=== PATIENT | male | born 1950 | race Caucasian/White ===

== ENCOUNTER 2020-06-27 06:15 | Outpatient (CLI) | payer MEDICARE, OTHER ==
[2020-06-27 16:46] LABS: SARS-CoV-2 MS2 Positive; SARS-CoV-2 N Gene Negative; SARS-CoV-2 S Gene Negative; SARS-CoV-2 by NAA Not Detected (NotDetected); SARS-CoV-2 orf1ab Negative
== END 2020-06-27 06:16 | disposition home or self-care (01) ==
LOC: LABBT 06:15
PROVIDERS: ATTEND Neurological Surgery
DX: Z01.812 Encounter for preprocedural laboratory examination (principal); M48.062 Spinal stenosis, lumbar region with neurogenic claudication; Z20.828 Contact with and (suspected) exposure to other viral communicable diseases
CPT/HCPCS: 87635; U0003

== ENCOUNTER 2020-07-02 06:21 | Day surgery (SDC) | payer MEDICARE, OTHER ==
[2020-07-01 09:44] VITALS: BMI 31.7
--- NOTE | 2020-07-01 22:10 | HP ---
HISTORY OF PRESENT ILLNESS: Mr. Frost is a pleasant 69-year-old man, who presents to our office for evaluation of lower back pain that began over three or four months ago. This includes symptoms of claudication, radiculopathies of bilateral anterior thighs. He is only able to walk some 20 to 30 feet at that time and need to sit down specifically with his legs propped up. He has received two epidural steroid injections with Dr. Worthy, which helped roughly 2 to 3 days before his pain started returning. [facility] reveals two areas of [id number] stenosis at L2-L3 and L4-L5 with the pain that he is experiencing. PHYSICAL EXAMINATION: Deferred for telehealth visit. PAST MEDICAL HISTORY: Significant for hypercholesterolemia. PAST SURGICAL HISTORY: Right shoulder, unspecified. CURRENT MEDICATIONS: Atorvastatin. ALLERGIES: NO KNOWN DRUG ALLERGIES. ASSESSMENT: Lumbar spinal stenosis and radiculopathy. PLAN: Dr. Duque met with the patient, reviewed imaging, and advocated for L2-L3 diskectomy and L4-L5 decompression. He explained the patient risks, benefits, and alternatives to the procedure. The patient expressed understanding and elected to move forward with surgery as discussed. I do believe the patient is mentally competent and capable of making medical decisions for himself. We will move forward with surgery as planned. Job ID: [id number]
[2020-07-02] MEDS ORDERED: Bupivacaine PF 0.5% 30 ML VIAL ONE (07:11)
[2020-07-02] MEDS ORDERED: Thrombin 5000 UNITS/5 ML VIAL ONE (07:11)
[2020-07-02] MEDS ORDERED: Lidocaine 1% w/Epinephrine 1:100K 20 ML VIAL ONE (07:11)
[2020-07-02] MEDS ORDERED: Fentanyl 100 MCG/2 ML VIAL ONE (07:31)
[2020-07-02] MEDS ORDERED: Tamsulosin HCl 0.4 MG CAP ONE (09:44)
--- NOTE | 2020-07-02 09:49 | OP ---
DATE OF PROCEDURE: 07/02/2020 TAPE TRANSFERRER: Jerrell Carroll PA-C. INDICATION: Pain. DIAGNOSES: Lumbar stenosis, lumbar radiculopathy, and neurogenic claudication. PROCEDURE PERFORMED: L4-5 decompression and through a separate incision, L2-3 decompression. ANESTHESIA: General. DESCRIPTION OF PROCEDURE: The patient was brought into the operating room and placed under general anesthesia. He was flipped from the supine to prone position on the operating room table. A linear incision was planned in two areas, one over L4-5, one over L2-3. Both incisions were prepped and draped. Following an appropriate operative pause, the incision on the L4-5 was created. Soft tissues were swept away from midline. Self-retaining retractors were placed in the wound for optimal exposure. After confirming the appropriate level with C-arm fluoroscopy, an Adson rongeur was used to remove the spinous process of L4-5 at the interface. High-speed cutting drill bit as well as 2, 3, and 4 mm Kerrisons were then used to perform a laminectomy. The laminectomy was extended laterally to encompass the medial aspect of the facet joints until the central canal as well as the lateral recesses were well decompressed. After completing the decompression, we redirected our attention at the L2-3 incision where it was created. Soft tissues were swept away from midline. A self-retaining retractor was placed for optimal exposure. After confirming the appropriate level with C-arm fluoroscopy, an Adson rongeur was used to remove the spinous process on the inferior aspect of L2 and the superior aspect of L3. High-speed cutting drill bit as well as 2, 3, and 4 mm Kerrisons were used to perform a laminectomy. The laminectomy was extended laterally to encompass the medial aspect of the facet joints. After completing the decompression, both incision areas were well irrigated and hemostasis was maintained throughout. Both incisions were closed in anatomic layers, and a pressure dressing was applied. There were no known procedural complications. Job ID: [id number]
[2020-07-02] MEDS ORDERED: ePHEDrine 50 MG/ML VIAL ONE (10:10)
[2020-07-02] MEDS ORDERED: Glycopyrrolate 0.2 MG/ML 5 ML SYRINGE ONE (10:10)
[2020-07-02] MEDS ORDERED: Lidocaine 1% PF 5 ML VIAL ONE (10:10)
[2020-07-02] MEDS ORDERED: PROPOFOL 200 MG/20 ML VIAL ONE (10:10)
[2020-07-02] MEDS ORDERED: PHENYLEPHRINE-NS 100 MCG/ML 10 ML SYRINGE ONE (10:10)
[2020-07-02] MEDS ORDERED: Ondansetron PF 4 MG/2 ML Vial ONE (10:10)
[2020-07-02] MEDS ORDERED: Rocuronium Bromide 10 MG/ML (10ML VIAL) ONE (10:10)
[2020-07-02] MEDS ORDERED: Dexamethasone 20 MG/5 ML VIAL ONE (10:10)
== END 2020-07-02 14:25 | disposition home or self-care (01) ==
LOC: SDC 06:21
PROVIDERS: ATTEND Neurological Surgery
PROC: 00NY0ZZ Release Lumbar Spinal Cord, Open Approach (ICD-10-PCS; principal; 2020-07-02)
DX: M48.062 Spinal stenosis, lumbar region with neurogenic claudication (principal); M54.16 Radiculopathy, lumbar region; E78.00 Pure hypercholesterolemia, unspecified; E78.5 Hyperlipidemia, unspecified; G47.30 Sleep apnea, unspecified; F32.9 Major depressive disorder, single episode, unspecified; Z79.899 Other long term (current) drug therapy; Z87.891 Personal history of nicotine dependence
CPT/HCPCS: 76000; J0690; J1100; J2405; J2704; J3010; J3490; S0020

== ENCOUNTER 2021-08-25 08:31 | Outpatient (CLI) | payer MEDICARE, OTHER | END 2021-08-25 08:32 | disposition home or self-care (01) | LOC: MRI 08:31 | PROVIDERS: ATTEND Neurological Surgery | DX: M47.26 Other spondylosis with radiculopathy, lumbar region (principal); R29.898 Other symptoms and signs involving the musculoskeletal system; Z98.890 Other specified postprocedural states | CPT/HCPCS: 72158 ==

== ENCOUNTER 2024-09-20 06:55 | Outpatient (CLI) | payer MEDICARE, OTHER | END 2024-09-20 06:56 | disposition home or self-care (01) | LOC: BICULT 06:55 | PROVIDERS: ATTEND Family Medicine | DX: Z13.6 Encounter for screening for cardiovascular disorders (principal); I77.811 Abdominal aortic ectasia | CPT/HCPCS: 76775 ==